=== PATIENT | male | born 1970 | race Caucasian/White ===

== ENCOUNTER 2017-08-22 15:10 | Emergency (ER) ==
[2017-08-22 15:20] VITALS: BP 132/86; TEMP 98.4; BMI 27.4
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
== END 2017-08-22 16:45 | disposition home or self-care (01) ==
LOC: ED 15:10
DX: K02.7 Dental root caries (principal); S02.5XXA Fracture of tooth (traumatic), initial encounter for closed fracture; F17.210 Nicotine dependence, cigarettes, uncomplicated
CPT/HCPCS: 99282